=== PATIENT | male | born 1965 | race Caucasian/White ===

== ENCOUNTER → 2019-03-22 | Outpatient (CLI) | payer OTHER ==
[~2019-03-22] MED LIST: ULTRAM 50MG TAB50 MG PO; UNABLE
== END ==
LOC: COL.RAD 09:40
DX: Z02.71 Encounter for disability determination (principal); M16.11 Unilateral primary osteoarthritis, right hip; M25.851 Other specified joint disorders, right hip

== ENCOUNTER 2024-01-31 11:05 | Emergency (ER) | payer MEDICARE ==
[~2024-01-31] VITALS: Ht 180.3 cm; Wt 90.9 kg
[2024-01-31 11:09] VITALS: TEMP 97.8
[2024-01-31] MEDS ORDERED: PREDNISONE10 MG PO (11:28)
[2024-01-31] MEDS ORDERED: ZOVIRAX800 MG PO (11:28)
[2024-01-31] MEDS ORDERED: HYDROmorphone 0.5 MG/0.5 ML SYRINGE IM ONE (11:45)
[2024-01-31 12:10] VITALS: BP 176/90; PULSE 78
== END 2024-01-31 12:13 | disposition home or self-care (01) ==
LOC: COL.ER 11:05
DX: B02.9 Zoster without complications (principal)
CPT/HCPCS: J0780; J1170

== ENCOUNTER 2024-02-23 19:28 | Emergency (ER) | payer MEDICARE ==
[~2024-02-23] VITALS: Ht 180.3 cm; Wt 90.9 kg
[~2024-02-23 19:28] MED LIST changes: +NEURONTIN300 MG/CAP PO; +PERCOCET 325 MG1 TA2 PO; +PREDNISONE10 MG PO; +ZOVIRAX800 MG PO
[2024-02-23 19:36] VITALS: BP 162/97; TEMP 97.8
[2024-02-23] MEDS ORDERED: PREDNISONE20 MG PO (20:04)
[2024-02-23 20:21] VITALS: PULSE 88
== END 2024-02-23 20:22 | disposition home or self-care (01) ==
LOC: COL.ER 19:28
DX: B02.29 Other postherpetic nervous system involvement (principal); G51.0 Bell's palsy